=== PATIENT | male | born 1935 | race Caucasian/White ===

== ENCOUNTER → 2016-12-09 | Outpatient (CLI) | payer OTHER | LOC: MOB LAB 10:08 | DX: R97.20 Elevated prostate specific antigen [PSA] (principal); E55.9 Vitamin D deficiency, unspecified; Z12.5 Encounter for screening for malignant neoplasm of prostate | CPT/HCPCS: 36415; 82306; G0103 ==

== ENCOUNTER → 2017-01-19 | Outpatient (CLI) | payer OTHER | LOC: MMPC 09:00 | DX: I10 Essential (primary) hypertension (principal); R97.20 Elevated prostate specific antigen [PSA]; R01.1 Cardiac murmur, unspecified; H90.5 Unspecified sensorineural hearing loss; M17.0 Bilateral primary osteoarthritis of knee | CPT/HCPCS: 99213; G0463 ==

== ENCOUNTER → 2017-03-18 | Outpatient (CLI) | payer OTHER | LOC: MMPC 11:11 | DX: I10 Essential (primary) hypertension (principal); R97.20 Elevated prostate specific antigen [PSA]; M17.0 Bilateral primary osteoarthritis of knee; H90.5 Unspecified sensorineural hearing loss; R01.1 Cardiac murmur, unspecified | CPT/HCPCS: 99213; G0463 ==